=== PATIENT | female | born 2000 | race African-American/Black ===

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

== ENCOUNTER 2024-03-26 18:30 | Emergency (ER) | payer SELFPAY ==
[~2024-03-26] VITALS: Ht 180.3 cm; Wt 83.9 kg
[2024-03-26 18:32] VITALS: O2SAT 98
[2024-03-26] MEDS ORDERED: IBUPROFEN 800MG TABLET PO ONE (20:15)
[2024-03-26] MEDS ORDERED: HYDROCODONE/ACETAMINOPHEN 5/325MG TABLET PO ONE (20:15)
[2024-03-26] MEDS: IBUPROFEN 800MG TABLET PO NR (21:11)
[2024-03-26] MEDS: HYDROCODONE/ACETAMINOPHEN 5/325MG TABLET PO NR (21:11)
[2024-03-26] MEDS: LIDOCAINE 5% PATCH TOP SCH (21:12)
[2024-03-26] MEDS ORDERED: IBUP-2030 MT (21:41)
[2024-03-26] MEDS ORDERED: LIDO700A15 TP (21:41)
[2024-03-26] MEDS ORDERED: CYCL5TAB MT (21:41)
[2024-03-26 21:51] VITALS: BP 116/78; PULSE 74; RESP 12; TEMP 98.4
== END 2024-03-26 21:55 | disposition home or self-care (01) ==
LOC: ER 18:30 → EDSEX 18:30 → ER 21:55
DX: M54.50 Low back pain, unspecified (principal)
CPT/HCPCS: 99284